=== PATIENT | female | born 1965 | race Caucasian/White ===

== ENCOUNTER 2016-12-07 10:27 | Day surgery (SDC) | payer OTHER ==
[~2016-12-07] VITALS: Ht 157.5 cm; Wt 68.0 kg
[~2016-12-07 10:27] MED LIST: ADIPEX-P37.5 MG PO; ANTIVERT25 MG PO; BYSTOLIC10 MG PO; ECHINACEA PO; ESTRACE1 MG PO; KLONOPIN0.5 M1 PO; LEXAPRO10 MG PO; LIPITOR20 MG PO; MOBIC7.5 MG PO; OMEPRAZOLE40 M1 PO; ONE DAILY MULT1 EAC1 PO; PERCOCET 5/31 TABLET PO; REQUIP0.5 MG PO; SYNTHROID25 MCG PO; SYNTHROID50 MCG PO; THYROXINE PO; UNITHROID25 MCG PO; UNITHROID50 MCG PO; VALIUM5 MG PO; ZANAFLEX4 M1 PO
[2016-12-07 11:52] VITALS: BP 124/76
[2016-12-07 17:09] VITALS: BP 129/82
[2016-12-07 19:39] VITALS: BP 121/75
[2016-12-07 23:14] VITALS: BP 120/63
[2016-12-08 03:26] VITALS: BP 103/57
[2016-12-08 07:25] VITALS: BP 107/62
== END 2016-12-08 10:34 | disposition home or self-care (01) ==
LOC: SDC 10:27 → 2SOUTH 12:57 → 2EAST 12:57 → 2SOUTH 12:57 → ENRESERV 12:59 → SDC 15:41 → 2EAST 17:05
PROC: 0H0V0ZZ Alteration of Bilateral Breast, Open Approach (ICD-10-PCS; principal; 2016-12-07)
DX: N62 Hypertrophy of breast (principal); M79.7 Fibromyalgia; M54.2 Cervicalgia; N64.4 Mastodynia; I10 Essential (primary) hypertension; E78.5 Hyperlipidemia, unspecified; E03.9 Hypothyroidism, unspecified; K21.9 Gastro-esophageal reflux disease without esophagitis; Z88.0 Allergy status to penicillin; Z87.891 Personal history of nicotine dependence
CPT/HCPCS: 88305; 93005; 94799; G0378; J0131; J0330; J1100; J1170; J1885; J2060; J2250; J2405